=== PATIENT | female | born 1985 | race Caucasian/White ===

== ENCOUNTER 2016-09-20 12:04 | Emergency (ER) | payer OTHER ==
[2016-09-20 12:15] VITALS: BP 155/85
--- NOTE | 2016-09-20 12:25 | UC ---
UC General HPI - HPI Summary HPI Summary: complaint of intermittent tingling in both of her arms for several months ago but has worsening for the last week feeling a pressure in the front of her head that started 1 week ago- intermittent pressure that lasts for 1-2 hours and has shortness of breath, dizziness and palpitations with these episodes yesterday felt the pressure and shortness of breath at the same time for several hours fever and chills last week sore throat that started approx 1 week ago- going away- daughter with tonsillitis feels anxious about her health, concerned about blood pressure denies chest pain, dizziness, diaphoresis, nausea, shortness of breath at this time no use OCP's, no recent travel - History of Current Complaint Chief Complaint: UCGeneralIllness Stated Complaint: BILATERAL ARM TINGLING,PAULINO Time Seen by Provider: 09/20/16 12:16 Hx Obtained From: Patient - Allergy/Home Medications Allergies/Adverse Reactions: Allergies Allergy/AdvReac Type Severity Reaction Status Date / Time Sulfa Antibiotics Allergy Unknown Verified 09/20/16 12:15 Reaction Details PMH/Surg Hx/FS Hx/Imm Hx Previously Healthy: Yes Psychological History: Anxiety, Depression - Surgical History Surgical History: None - Family History Known Family History: Positive: Unknown - adopted - Social History Occupation: Employed Full-time Lives: With Family Alcohol Use: None Substance Use Type: None Smoking Status (MU): Smoker, Current Status Unknown Amount Used/How Often: rare Have You Smoked in the Last Year: Yes Household Exposure Type: Cigarettes Cessation Counseling: Patient Advised to Stop Review of Systems Constitutional: Fever, Chills, Fatigue Skin: Negative Eyes: Negative ENT: Negative, Sore Throat Respiratory: Shortness Of Breath, Cough Cardiovascular: Palpitations Gastrointestinal: Negative Genitourinary: Negative Motor: Negative Neurovascular: Negative Musculoskeletal: Negative Neurological: Headache, Paresthesia - in both arms Psychological: Anxious All Other Systems Reviewed And Are Negative: Yes Physical Exam Triage Information Reviewed: Yes Appearance: Well-Appearing, Well-Nourished, Obese Vital Signs: Initial Vital Signs Temp 99.4 F 09/20/16 12:06 Pulse 127 09/20/16 12:06 Resp 16 09/20/16 12:06 BP 155/85 09/20/16 12:06 Pulse Ox 99 09/20/16 12:06 Vital Signs Reviewed: Yes Eyes: Positive: Conjunctiva Clear ENT: Positive: Pharyngeal erythema, Nasal drainage, TMs normal Neck: Positive: No Lymphadenopathy Respiratory: Positive: Lungs clear, Normal breath sounds, No respiratory distress, No accessory muscle use Cardiovascular: Positive: No Murmur, Pulses Normal, Brisk Capillary Refill, Tachycardia Abdomen Description: Positive: Nontender, No Organomegaly, Soft. Negative: CVA Tenderness (R), CVA Tenderness (L), Distended, Guarding Bowel Sounds: Positive: Present Musculoskeletal: Positive: No Edema Neurological: Positive: Alert Psychological Exam: Normal Skin Exam: Normal Course/Dx - Course Course Of Treatment: exam completed. ECG shows tachycardia- rate 107 BPM, no ectopy. d/t symptoms of tachycardia,elevated blood pressure, arm tingling, dizziness and shortness of breath recommend further evaluation and treatment in higher level of care. pt refuses recommendation d/t daughter - Differential Dx - Multi-Symptom Differential Diagnoses: Other - pulmonary embolism, tachycardia, anxiety Provider Diagnoses: tachycardia Discharge - Discharge Plan Condition: Stable Disposition: AGAINST MEDICAL ADVICE Patient Education Materials: Tachycardia (ED) Referrals: No Primary Care Phys,NOPCP [Primary Care Provider] - [facility] [Outside]
== END 2016-09-20 13:04 | disposition left against medical advice (07) ==
LOC: UCCORT 12:04
DX: R00.0 Tachycardia, unspecified (principal); F17.210 Nicotine dependence, cigarettes, uncomplicated; F32.9 Major depressive disorder, single episode, unspecified; F41.9 Anxiety disorder, unspecified; Z88.2 Allergy status to sulfonamides
CPT/HCPCS: 93005; 99212; G0463